=== PATIENT | female | born 1985 | race Caucasian/White ===

== ENCOUNTER 2020-02-29 18:54 | Emergency (ER) | payer BC, SELFPAY ==
[2020-02-29] MEDS ORDERED: Lidocaine 1% PF 5 ML VIAL ONE (19:06)
[2020-02-29] MEDS ORDERED: Clindamycin 150 MG CAP ONE (19:28)
== END 2020-02-29 19:33 | disposition home or self-care (01) ==
LOC: BURERS 18:54
DX: L72.3 Sebaceous cyst (principal); L08.9 Local infection of the skin and subcutaneous tissue, unspecified; F32.9 Major depressive disorder, single episode, unspecified; F17.210 Nicotine dependence, cigarettes, uncomplicated; Z79.899 Other long term (current) drug therapy
CPT/HCPCS: 10060

== ENCOUNTER 2021-01-02 20:44 | Emergency (ER) | payer MEDICAID, SELFPAY ==
[2021-01-02] MEDS ORDERED: HYDROcodone/Acetaminophen 10/325 mg Tablet ONE (21:43)
[2021-01-02] MEDS ORDERED: Lidocaine 1% w/Epinephrine 1:100K 20 ML VIAL ONE (22:09)
[2021-01-02] MEDS ORDERED: Clindamycin 150 MG CAP ONE (22:31)
== END 2021-01-02 22:34 | disposition home or self-care (01) ==
LOC: BURERS 20:44
DX: L02.215 Cutaneous abscess of perineum (principal); I10 Essential (primary) hypertension; F17.210 Nicotine dependence, cigarettes, uncomplicated; Z79.899 Other long term (current) drug therapy
CPT/HCPCS: 10060

== ENCOUNTER 2021-01-04 19:49 | Emergency (ER) | payer MEDICAID | END 2021-01-04 20:18 | disposition home or self-care (01) | LOC: BURERS 19:49 | DX: Z48.817 Encounter for surgical aftercare following surgery on the skin and subcutaneous tissue (principal); I10 Essential (primary) hypertension; F17.210 Nicotine dependence, cigarettes, uncomplicated; Z79.899 Other long term (current) drug therapy | CPT/HCPCS: 99282 ==

== ENCOUNTER 2021-06-21 16:56 | Emergency (ER) | payer MEDICAID, SELFPAY ==
[2021-06-21 18:02] LABS: Bilirubin Small (Negative); Blood, Urine Large (Negative); Clarity Cloudy (Clear); Glucose, Urine (Dipstick) Negative (Negative); Ketone, Urine Trace mg/dL (Negative); Leukocyte Moderate (Negative); Nitrite Negative (Negative); Protein, Urine (Dipstick) 30 mg/dL (Neg-Trace); pH, Urine 6.5 (5.0-9.0)
[2021-06-21 18:05] LABS: RBC/HPF 0-3 HPF (0-3)
[2021-06-21 18:06] LABS: Bacteria/HPF 3+ HPF (None Seen); Mucous/LPF 1+ LPF (<2+); Pregnancy Test - Urine (BHCG) Negative (Negative); Pregu Control Background? CLEAR/WHITE (CLR/WHITE); Pregu Control Bar Appear? YES (CONTROL BAR)
[2021-06-21 18:23] LABS: #Basophils 0.1 thou/uL (0.0-0.2); #Eosinphils 0.1 thou/uL (0.0-0.7); #Lymphocytes 3.4 thou/uL (1.20-3.40); #Monocytes 0.6 thou/uL (0.11-0.59); #Neutrophils 9.2 thou/uL (1.40-6.50); %Basophils 0.9 % (0.0-1.0); %Monocytes 4.3 % (0.0-10.0); %Neutrophils 68.8 % (42.0-75.0); Hemoglobin 15.4 g/dL (12.0-16.0); Mean Corpuscular HGB CONC 34.1 g/dL (32.0-36.0); Mean Corpuscular Hemoglobin 30.9 pg (27.0-31.0); Mean Corpuscular Volume 90.7 fL (78.0-98.0); Mean Platelet Volume 8.3 fL (7.4-10.4); Platelet Count 400 thou/uL (130-400); RBC Distribution Width 11.7 % (11.5-14.5); Red Blood Cell (RBC) Count 4.98 mill/uL (4.20-5.40); White Blood Cell (WBC) Count 13.4 thou/uL (4.8-10.8)
[2021-06-21] MEDS ORDERED: Fentanyl 100 MCG/2 ML VIAL ONE ×3 (18:25→21:52)
[2021-06-21] MEDS ORDERED: Ketorolac Tromethamine 30 MG/ML VIAL ONE (18:25)
[2021-06-21] MEDS ORDERED: Dicyclomine 20 MG TAB ONE (18:25)
[2021-06-21 18:51] LABS: ALT (SGPT) 279 U/L (8-55); AST (SGOT) 364 U/L (5-34); Albumin 4.5 g/dL (3.5-5.0); Alkaline Phosphatase 131 U/L (40-110); Anion Gap 16 mmol/L (10-20); BUN (Urea Nitrogen) 7 mg/dL (7.0-18.7); Bilirubin, Total 1.1 mg/dL (0.2-1.2); Calc. Creatinine Clearance 0 mL/min (70-130); Calcium 10.2 mg/dL (7.8-10.44); Carbon Dioxide 23 mmol/L (22-29); Chloride 104 mmol/L (98-107); Globulin 3.1 g/dL (2.4-3.5); Glucose 87 mg/dL (70-105); Lipase 2197 U/L (8-78); Potassium 3.5 mmol/L (3.5-5.1); Protein, Total 7.6 g/dL (6.0-8.3); Sodium 139 mmol/L (136-145)
[2021-06-21] MEDS ORDERED: cefTRIAXone\\ROCEPHIN 1 GM VIAL ONE (19:40)
[2021-06-21] MEDS ORDERED: Sodium Chloride 0.9% 100 ML ONE (19:40)
[2021-06-21 23:21] LABS: SARS-CoV-2 NAA Rapid Test DETECTED (NotDetected)
== END 2021-06-21 23:00 | disposition short-term general hospital (02) ==
LOC: BURERS 16:56
DX: K85.90 Acute pancreatitis without necrosis or infection, unspecified (principal); K81.0 Acute cholecystitis; I10 Essential (primary) hypertension; F17.210 Nicotine dependence, cigarettes, uncomplicated
CPT/HCPCS: 0241U; 74177; 80053; 81003; 81015; 81025; 83690; 85025; 96365; 96375; 96376; J0696; J1885; J3010; J3490

== ENCOUNTER 2022-08-16 17:00 | Emergency (ER) | payer SELFPAY ==
[2022-08-16] MEDS ORDERED: Lidocaine 1% PF 5 ML VIAL ONE (17:27)
[2022-08-16] MEDS ORDERED: Ondansetron ODT 4 MG TAB ONE (17:27)
[2022-08-16] MEDS ORDERED: HYDROcodone/Acetaminophen 5/325 mg Tablet ONE (17:40)
== END 2022-08-16 17:49 | disposition home or self-care (01) ==
LOC: BURERS 17:00
DX: N76.4 Abscess of vulva (principal); I10 Essential (primary) hypertension; F17.210 Nicotine dependence, cigarettes, uncomplicated
CPT/HCPCS: 56405; 87070; 87205; Q0162

== ENCOUNTER 2022-08-17 14:03 | Emergency (ER) | payer SELFPAY | END 2022-08-17 14:25 | disposition home or self-care (01) | LOC: BURERS 14:03 | DX: N76.4 Abscess of vulva (principal); I10 Essential (primary) hypertension; F17.200 Nicotine dependence, unspecified, uncomplicated | CPT/HCPCS: 10060 ==

== ENCOUNTER 2023-12-27 10:38 | Emergency (ER) | payer OTHER, SELFPAY ==
[2023-12-27] MEDS ORDERED: methylPREDNISolone Sod Succ/PF 125 MG/2 ML VIAL ONE (10:58)
[2023-12-27] MEDS ORDERED: Ondansetron ODT 4 MG TAB ONE (10:58)
== END 2023-12-27 11:07 | disposition home or self-care (01) ==
LOC: BURERS 10:38
DX: T63.463A Toxic effect of venom of wasps, assault, initial encounter (principal); F17.210 Nicotine dependence, cigarettes, uncomplicated
CPT/HCPCS: 96372; 99282; J2930; Q0162

== ENCOUNTER 2025-03-29 13:19 | Emergency (ER) | payer OTHER | END 2025-03-29 14:38 | disposition home or self-care (01) | LOC: BURERS 13:19 | DX: O9A.219 Injury, poisoning and certain other consequences of external causes complicating pregnancy, unspecified trimester (principal); S63.501A Unspecified sprain of right wrist, initial encounter; O99.330 Smoking (tobacco) complicating pregnancy, unspecified trimester; F17.210 Nicotine dependence, cigarettes, uncomplicated; W01.0XXA Fall on same level from slipping, tripping and stumbling without subsequent striking against object, initial encounter; Z3A.00 Weeks of gestation of pregnancy not specified ==